=== PATIENT | female | born 1965 | race Caucasian/White ===

== ENCOUNTER 2018-09-03 16:40 | Emergency (ER) | payer OTHER ==
[2018-09-03] MEDS ORDERED: IBUPROFEN 600 MG TABLET PO ONE (16:50)
--- NOTE | 2018-09-03 16:56 | Emergency Department Record ---
History of Present Illness - General Chief complaint: Extremity Problem Stated complaint: LEFT SHOULDER INJ W/C Time Seen by Provider: 09/03/18 16:50 Source: Patient Mode of Arrival: Ambulatory Limitations: No limitations - History of Present Illness Initial comments: 53 yo female presents with left scapular pain since injury last night at work. She was at work and [facility]. A co-worker opened a door and she unintentionally ran into the door hitting her scapula. No other injury. She has had rotator cuff surgery on the shoulder. No shoulder or clavicle pain or swelling. MD Complaint: Joint pain -: Days(s) (1) Location: Left, Shoulder (scapula) Radiation: Distal Quality: Aching Consistency: Constant Improves with: Immobilization Worsens with: Palpation Associated Symptoms: Arthralgias - Related Data Previous Rx's Medication Instructions Recorded Ibuprofen [Motrin 600Mg] 600 mg PO Q6H #20 tablet 09/03/18 Orphenadrine Citrate [Norflex] 100 mg PO Q12H PRN #10 tab 09/03/18 Allergies Allergy/AdvReac Type Severity Reaction Status Date / Time ciprofloxacin [From Cipro] Allergy HIVES Verified 09/03/18 16:55 cyclobenzaprine Allergy HIVES Verified 09/03/18 16:55 [From Flexeril] hydrocodone Allergy HIVES Verified 09/03/18 16:55 hydroxyzine Allergy HIVES Verified 09/03/18 16:55 levofloxacin [From Levaquin] Allergy HIVES Verified 09/03/18 16:55 naproxen [From Naprosyn] Allergy HIVES Verified 09/03/18 16:55 oxycodone Allergy HIVES Verified 09/03/18 16:55 promethazine Allergy HIVES Verified 09/03/18 16:55 sulfamethoxazole Allergy HIVES Verified 09/03/18 16:55 [From Bactrim] trimethoprim [From Bactrim] Allergy HIVES Verified 09/03/18 16:55 hydroxychloroquine AdvReac affects Verified 09/03/18 16:55 [From Plaquenil] lupus meloxicam [From Mobic] AdvReac affects Verified 09/03/18 16:55 lupus methocarbamol AdvReac muscle Verified 09/03/18 16:55 spasms Review of Systems Constitutional: Denies: Chills, Fever, Malaise, Weakness Eyes: Denies: Eye discharge ENT: Denies: Congestion, Throat pain Respiratory: Denies: Cough Cardiovascular: Denies: Chest pain, Edema Endocrine: Denies: Fatigue Gastrointestinal: Denies: Abdominal pain, Diarrhea, Nausea, Vomiting Musculoskeletal: Reports: As per HPI, Arthralgia Skin: Denies: Bruising, Change in color, Rash Neurological: Denies: Headache, Numbness, Weakness Psychiatric: Denies: Anxiety Hematological/Lymphatic: Denies: Easy bleeding, Easy bruising Physical Exam - General General Appearance: Alert, Oriented x3, Cooperative, No acute distress Limitations: No limitations - Head Head exam: Atraumatic, Normal inspection - Eye Eye exam: Normal appearance. negative: Conjunctival injection - ENT ENT exam: Normal exam, Mucous membranes moist Ear exam: Normal external inspection Nasal Exam: Normal inspection Mouth exam: Normal external inspection - Neck Neck exam: Normal inspection - Respiratory Respiratory exam: Normal lung sounds bilaterally. negative: Chest wall tenderness, Decreased breath sounds - Cardiovascular Cardiovascular Exam: Regular rate, Normal rhythm, Normal heart sounds Peripheral Pulses: 2+: Radial (L) - Rectal Rectal exam: Deferred - exam: Deferred - Extremities Extremities exam: Normal inspection, Full ROM, Normal capillary refill. negative: Joint swelling, Tenderness Image of Full Body: 1 - non tender clavicle, non tender humerus, no pain with internal/external rotation, normal inspection 2 - tender tip of the scapula, normal inspection - Back Back exam: Denies: CVA tenderness (R), CVA tenderness (L), Muscle spasm, Paraspinal tenderness, Tenderness, Vertebral tenderness - Neurological Neurological exam: Alert, Oriented X3 - Psychiatric Psychiatric exam: Normal affect, Normal mood - Skin Skin exam: Dry, Intact, Normal color, Warm Course - Reevaluation(s) Reevaluation #1: 09/03/18 17:35 The XR read by me was negative for acute process, fracture, 09/03/18 18:05 The final read was no osseous injury. Possible JUANITA nodule recommend non emergent CT follow up 09/03/18 18:17 The XR was explained to the patient. I explained the need for short term follow up with her PCP in the next few weeks. Disposition Disposition: Discharge Clinical Impression: Contusion of scapular region Disposition: Home, Self-Care Condition: (1) Good Instructions: Shoulder Pain (ED) Additional Instructions: Apply ice to minimize pain and swelling You may take tylenol or motrin for discomfort Call your doctor for a recheck if the pain continues more that a week Return if worse, fever, cough, any new concerns You have a nodule in the left upper lung. Call your doctor to arrange a follow up non emergent CT scan of the lungs to monitor Prescriptions: Ibuprofen [Motrin 600Mg] 600 mg PO Q6H #20 tablet Orphenadrine Citrate [Norflex] 100 mg PO Q12H PRN #10 tab PRN Reason: Spasms Forms: Patient Portal Access Time of Disposition: 17:34 Quality - Quality Measures Quality Measures: N/A - Blood Pressure Screening Does Patient Have Any of the Following: No Blood Pressure Classification: Pre-Hypertensive BP Reading Systolic Measurement: 125 Diastolic Measurement: 84 Screening for High Blood Pressure: < Pre-Hypertensive BP, F/U Documented > [ [id number]] Pre-Hypertensive Follow-up Interventions: Referral to alternative/primary care provider.
[2018-09-03 18:44] LABS: AMPHETAMINE SCREEN URINE NOT DETECTED; BARBITURATE SCREEN URINE NOT DETECTED; BENZODIAZEPINE SCREEN URINE NOT DETECTED; COCAINE SCREEN URINE NOT DETECTED; METHADONE SCREEN URINE NOT DETECTED; METHAMPHETAMINE SCREEN NOT DETECTED; OPIATE SCREEN URINE NOT DETECTED; OXYCODONE SCREEN URINE NOT DETECTED; PHENCYCLIDINE SCREEN URINE NOT DETECTED; PROPOXYPHENE SCREEN URINE NOT DETECTED; THC SCREEN URINE NOT DETECTED; TRICYCLIC ANTIDEPRESSANT SCRN NOT DETECTED
--- NOTE | 2018-09-05 07:19 | RADIOLOGY REPORT ---
EXAM: SCAPULA, LEFT HISTORY: INJURY. TECHNIQUE: Two views of the left scapula. COMPARISON: None. FINDINGS: No acute fracture is visualized. Glenohumeral and acromioclavicular joint alignment appears maintained. Suggestion of an 11 mm rounded nodular opacity in the left upper lobe region. IMPRESSION: 1. NO DEFINITE ACUTE OSSEOUS FINDINGS. 2. POSSIBLE LEFT UPPER LOBE PULMONARY NODULE; NONEMERGENT CT CHEST FOLLOW-UP IS RECOMMENDED FOR FURTHER ASSESSMENT. J[facility]BER: [id number] [facility]
== END 2018-09-03 18:15 | disposition home or self-care (01) ==
LOC: ER 16:40
DX: S40.012A Contusion of left shoulder, initial encounter (principal); W22.8XXA Striking against or struck by other objects, initial encounter; Y92.239 Unspecified place in hospital as the place of occurrence of the external cause; Y99.0 Civilian activity done for income or pay
CPT/HCPCS: 99283; 99284; 80305 ×10; 73010; G0480; G0477 ×2; 80320